=== PATIENT | male | born 1965 | race Caucasian/White ===

== ENCOUNTER → 2019-10-22 | Outpatient (CLI) | payer OTHER ==
[2019-10-22 08:12] LABS: Basophils % (A) 1 %; Eosinophils # (A) 0.1 k/uL (0-0.7); Eosinophils % (A) 2 %; HCT 47.6 % (39.0-53.0); HGB 16.4 gm/dL (13.0-17.5); Lymphocytes # (A) 1.3 k/uL (1.0-4.8); Lymphocytes % (A) 26 %; MCH 32.6 pg (25.0-35.0); MCHC 34.5 g/dL (31.0-37.0); MCV 94.5 fL (80.0-100.0); Mean Platelet Volume 7.9; Monocytes # (A) 0.3 k/uL (0-1.0); Monocytes % (A) 6 %; Neutrophils % (A) 62 %; Platelet Count 233 k/uL (150-450); RBC 5.04 m/uL (4.30-5.90); RDW 12.3 % (11.5-15.5); WBC 4.9 k/uL (3.8-10.6)
[2019-10-22 16:13] LABS: T4, Free (Free Thyroxine) 1.7 ng/dL (0.80-1.80)
== END | disposition home or self-care (01) ==
LOC: LABWHC1 07:37
PROVIDERS: ATTEND Specialist
DX: E03.9 Hypothyroidism, unspecified (principal); L65.9 Nonscarring hair loss, unspecified; R53.83 Other fatigue; K21.9 Gastro-esophageal reflux disease without esophagitis; E80.6 Other disorders of bilirubin metabolism; E16.2 Hypoglycemia, unspecified; M25.50 Pain in unspecified joint; M79.609 Pain in unspecified limb; E78.9 Disorder of lipoprotein metabolism, unspecified; D70.9 Neutropenia, unspecified; F41.9 Anxiety disorder, unspecified; R42 Dizziness and giddiness; Z79.890 Hormone replacement therapy; Z91.018 Allergy to other foods; Z12.5 Encounter for screening for malignant neoplasm of prostate
CPT/HCPCS: 84439; 84481; 84443; 85025; 84270; 82040; 84403; 82306; 80327; 36415; G0103

== ENCOUNTER → 2020-05-18 | Outpatient (CLI) | payer OTHER ==
[2020-05-18 09:34] LABS: Basophils % (A) 1 %; Eosinophils # (A) 0.1 k/uL (0-0.7); Eosinophils % (A) 2 %; HCT 48.8 % (39.0-53.0); HGB 16.3 gm/dL (13.0-17.5); Lymphocytes # (A) 1.5 k/uL (1.0-4.8); Lymphocytes % (A) 38 %; MCH 31.9 pg (25.0-35.0); MCHC 33.4 g/dL (31.0-37.0); MCV 95.4 fL (80.0-100.0); Mean Platelet Volume 7.8; Monocytes # (A) 0.2 k/uL (0-1.0); Monocytes % (A) 5 %; Neutrophils # (A) 2.1 k/uL (1.3-7.7); Neutrophils % (A) 53 %; Platelet Count 212 k/uL (150-450); RBC 5.11 m/uL (4.30-5.90); WBC 4.1 k/uL (3.8-10.6)
[2020-05-18 17:13] LABS: African American GFR (CKD) 79.5 (60.0-200.0); Albumin 4.6 g/dL (3.80-4.90); Albumin/Globulin Ratio 2.19 (1.60-3.17); Anion Gap 5.1 mmol/L (4.00-12.00); BUN/Creat Ratio 12.5 Ratio (12.00-20.00); Calcium 9.8 mg/dL (8.7-10.3); Carbon Dioxide 27.9 mmol/L (21.6-31.8); Chol/HDL Ratio 3.42; Globulin 2.1 g/dL (1.6-3.3); Non-African American GFR(CKD) 68.6 (60.0-200.0); Total Bilirubin 2.9 mg/dL (0.3-1.2); Total Protein 6.7 g/dL (6.2-8.2)
[2020-05-18 17:20] LABS: T4, Free (Free Thyroxine) 1.2 ng/dL (0.80-1.80)
[2020-05-18 17:21] LABS: Estradiol 36.4 pg/mL
[2020-05-18 17:23] LABS: Prostate Specific Antigen 0.9 ng/mL (0.0-3.5)
[2020-05-18 19:26] LABS: Thyroid Peroxidase Antibodies 73.1 U/mL (0.0-60.0)
[2020-05-18 19:29] LABS: DHEA Sulfate 188.6 ug/dL (34.5-568.9)
[2020-05-18 19:32] LABS: Insulin Level 6.2 mIU/mL (3.0-25.0)
[2020-05-18 20:26] LABS: Hemoglobin A1C 5.1 % (4.0-6.0)
[2020-05-22 22:40] LABS: Albumin, LC/MS/MS 4.4 g/dL (3.6-5.1); Testosterone, Free, LC/MS/MS 71.1 pg/mL (46.0-224.0)
== END | disposition home or self-care (01) ==
LOC: LABWHC1 08:36
PROVIDERS: ATTEND Specialist
DX: L65.9 Nonscarring hair loss, unspecified (principal); K21.9 Gastro-esophageal reflux disease without esophagitis; E80.6 Other disorders of bilirubin metabolism; E16.2 Hypoglycemia, unspecified; E03.9 Hypothyroidism, unspecified; M79.609 Pain in unspecified limb; E78.9 Disorder of lipoprotein metabolism, unspecified; R42 Dizziness and giddiness; F41.9 Anxiety disorder, unspecified; Z79.890 Hormone replacement therapy; Z79.01 Long term (current) use of anticoagulants; D70.9 Neutropenia, unspecified; R53.83 Other fatigue; E06.9 Thyroiditis, unspecified
CPT/HCPCS: 36415; 80053; 80061; 82040; 82306; 82533; 82627; 82670; 83036; 83090; 83525; 84153; 84270; 84403; 84439; 84443; 84481; 85025; 86376

== ENCOUNTER → 2020-09-13 | Outpatient (CLI) | payer OTHER ==
--- NOTE | 2020-09-13 14:05 | MR ---
EXAMINATION TYPE: MR brain and iac wo/w con DATE OF EXAM: 09/13/2020 COMPARISON: NONE HISTORY: Left ear Tinnitus TECHNIQUE: Multiplanar, multisequence images of the brain and brainstem is performed without and with IV contras t, utilizing 7.5 mL intravenous Gadavist . Acoustic nerve disorder protocol. FINDINGS: Diffusion weighted images demonstrate no evidence of a recent infarct or other diffusion ab normality. There is no extra-axial fluid collection or significant white matter signal abnormality. The ventricular system and cisternal spaces are normal in size and appearance. The brain volume is age appropriate. Midline structures demonstrate normal morphology. There is curvilinear superior scalp lesion just ri ght of midline coronal image 18 presumably benign along the superficial aspect of the bony calvarium of T1 hyperintensity not well-seen on T2-weighted images. The craniocervical junction appears within normal limits. Post contrast images demonstrate no abnormal enhancement. The dural venous sinuses ap pear patent. Mild mucosal thickening involving ethmoid sinuses bilaterally. The globes are intact chelsey aterally. No suspicious opacification of mastoid air cells bilaterally. The vestibulocochlear complexes are sym metric and felt within normal limits. No suspicious enhancing masses are identified bilaterally. IMPRESSION: Source of left-sided tinnitus is not identified. Fairly unremarkable study.
== END | disposition home or self-care (01) ==
LOC: RADMRIMAIN 12:41
PROVIDERS: ATTEND Otolaryngology Otolaryngology/Facial Plastic Surgery
DX: H93.12 Tinnitus, left ear (principal)
CPT/HCPCS: 70553; A9585

== ENCOUNTER 2022-03-29 03:25 | Emergency (ER) | payer OTHER ==
[2022-03-29 03:46] VITALS: TEMP 97.9
[2022-03-29] MEDS ORDERED: HYDROmorphone 0.5 MG/0.5 ML SYRINGE IVP STA ×2 (04:10→07:25)
[2022-03-29] MEDS ORDERED: ONDANSETRON 4 MG/2 ML VIAL IVP STA (04:11)
[2022-03-29 05:04] LABS: Basophils % (A) 0 %; Eosinophils % (A) 0 %; HCT 42.5 % (39.0-53.0); HGB 14.6 gm/dL (13.0-17.5); Lymphocytes # (A) 0.6 k/uL (1.0-4.8); Lymphocytes % (A) 6 %; MCH 32.9 pg (25.0-35.0); MCHC 34.5 g/dL (31.0-37.0); MCV 95.5 fL (80.0-100.0); Mean Platelet Volume 7.9; Monocytes # (A) 0.4 k/uL (0-1.0); Monocytes % (A) 4 %; Neutrophils # (A) 8.6 k/uL (1.3-7.7); Neutrophils % (A) 89 %; Platelet Count 246 k/uL (150-450); RBC 4.44 m/uL (4.30-5.90); RDW 13.4 % (11.5-15.5); WBC 9.7 k/uL (3.8-10.6)
[2022-03-29 05:19] LABS: ALT 29 U/L (4-49); AST 32 U/L (17-59); African American GFR (CKD) >90 (>60 ml/min/1.73 sqM); Albumin 4.3 g/dL (3.5-5.0); Alkaline Phosphatase 98 U/L (38-126); Anion Gap 6 mmol/L; Blood Urea Nitrogen 21 mg/dL (9-20); Calcium 9.5 mg/dL (8.4-10.2); Carbon Dioxide 25 mmol/L (22-30); Chloride 102 mmol/L (98-107); Glucose 165 mg/dL (74-99); Non-African American GFR(CKD) >90 (>60 ml/min/1.73 sqM); Potassium 4.5 mmol/L (3.5-5.1); Sodium 133 mmol/L (137-145); Total Bilirubin 2.5 mg/dL (0.2-1.3); Total Protein 6.6 g/dL (6.3-8.2)
[2022-03-29 05:41] LABS: Amorphous Sediment,Urine Rare /hpf; Appearance,Urine Cloudy (Clear); Bilirubin,Urine Negative (Negative); Blood,Urine Negative (Negative); Calcium Oxalate Crystals,Urine Many /hpf; Color,Urine Yellow; Glucose,Urine (UA) Negative (Negative); Hyaline Casts,Urine 30 /lpf (0-2); Ketones,Urine 3+ (Negative); Leukocyte Esterase,Urine Negative (Negative); Mucus,Urine Many /hpf; Nitrite,Urine Negative (Negative); PH, Urine 5.5 (5.0-8.0); Protein,Urine 1+ (Negative); RBC,Urine 3 /hpf (0-5); Specific Gravity,Urine 1.041 (1.001-1.035); WBC,Urine 4 /hpf (0-5)
--- NOTE | 2022-03-29 06:17 | ED ---
Trauma HPI - General Chief Complaint: Back Pain/Injury Stated Complaint: blood in urine Time Seen by Provider: 03/29/22 03:56 Source: patient Mode of arrival: wheelchair - History of Present Illness Initial Comments: This patient is a 56-year-old man who presents to have evaluation for injury to his pelvis. Patient states he had been riding a horse. States he was breaking into a new horse and it bucked up and down. He was slammed into the saddle on his buttocks and genitals. He had also pain to the pelvis. Patient denies any other injury. He did not fall from horse to the ground. No head, neck, chest, back or extremity injury or pain. Patient went home took Tylenol and attempted to rest there. He did urinate this morning and noted some blood and examination with the pain he felt he should be evaluated here. The patient states there is currently no pain when he remains still, but severe pain when he attempts to move his pelvis. No lightheadedness or palpitations. No shortness of breath. MD Complaint: injury Onset/Timin -: hour(s) Loss of Consciousness: no Location: pelvis, genitals Consistency: intermittent Context: sports related injury Associated Symptoms: denies other symptoms Treatments Prior to Arrival: other - Related Data Home Medications Medication Instructions Recorded Confirmed Multivitamin [Men's Multi-Vitamin] 1 each PO DAILY 03/31/15 01/19/16 Omeprazole [PriLOSEC] 20 mg PO AC-BRKFST PRN 03/31/15 01/19/16 Allergies Allergy/AdvReac Type Severity Reaction Status Date / Time No Known Allergies Allergy Verified 03/29/22 03:46 Review of Systems ROS Statement: Those systems with pertinent positive or pertinent negative responses have been documented in the HPI. ROS Other: All systems not noted in ROS Statement are negative. Constitutional: Denies: fever, chills Respiratory: Denies: cough, dyspnea, hemoptysis Cardiovascular: Denies: chest pain, palpitations, edema Gastrointestinal: Reports: as per HPI, abdominal pain. Denies: nausea, vomiting, diarrhea, constipation, melena, hematochezia Genitourinary: Reports: hematuria, testicular pain. Denies: urgency, dysuria, frequency, testicular mass Musculoskeletal: Denies: back pain Skin: Denies: rash Neurological: Denies: headache, weakness, numbness, paresthesias Hematological/Lymphatic: Denies: easy bleeding Past Medical History Past Medical History: GERD/Reflux Additional Past Medical History / Comment(s): pt states "tested but low for Von willebrand" History of Any Multi-Drug Resistant Organisms: None Reported Additional Past Surgical History / Comment(s): EGD Past Anesthesia/Blood Transfusion Reactions: No Reported Reaction Past Psychological History: No Psychological Hx Reported Smoking Status: Never smoker Past Alcohol Use History: Occasional Past Drug Use History: None Reported - Past Family History Mother Family Medical History: No Reported History General Exam General appearance: alert, in no apparent distress Head exam: Present: atraumatic, normocephalic Eye exam: Present: normal appearance. Absent: scleral icterus, conjunctival injection Neck exam: Present: normal inspection, full ROM. Absent: tenderness Respiratory exam: Present: normal lung sounds bilaterally. Absent: respiratory distress, wheezes, rales, rhonchi, stridor Cardiovascular Exam: Present: regular rate, normal rhythm, normal heart sounds. Absent: systolic murmur, diastolic murmur, rubs, gallop GI/Abdominal exam: Present: soft, tenderness (Low abdominal tenderness). Absent: distended, guarding, rebound, rigid, mass Extremities exam: Present: normal inspection, normal capillary refill. Absent: pedal edema, calf tenderness Back exam: Present: normal inspection. Absent: CVA tenderness (R), CVA tenderness (L) Neurological exam: Present: alert Skin exam: Present: warm, dry, intact, normal color. Absent: rash Course Vital Signs 03/29/22 03/29/22 03/29/22 03:40 05:06 06:33 Temperature 97.9 F Pulse Rate 82 67 66 Respiratory 18 20 18 Rate Blood Pressure 109/72 97/70 115/81 O2 Sat by Pulse 97 99 100 Oximetry Medical Decision Making - Medical Decision Making Patient's 56-year-old man who sustained injury when the horse he was on bucked and he slammed into the saddle. From the computed tomography scan the patient has a separation of the pubic symphysis. There is pelvic hematoma. The case is upgraded. Discussed with patient and family that given this injury higher-level of trauma care as desired, and expressed interest in being transferred to [facility], requesting [facility] but [facility] does not support this level trauma and [facility] will accept the patient. will accept patient for transfer to the emergency department. - Lab Data Result diagrams: 03/29/22 04:43 03/29/22 04:43 Lab Results 03/29/22 03/29/22 03/29/22 Range/Units 04:43 04:43 05:16 WBC 9.7 (3.8-10.6) k/uL RBC 4.44 (4.30-5.90) m/uL Hgb 14.6 (13.0-17.5) gm/dL Hct 42.5 (39.0-53.0) % MCV 95.5 (80.0-100.0) fL MCH 32.9 (25.0-35.0) pg MCHC 34.5 (31.0-37.0) g/dL RDW 13.4 (11.5-15.5) % Plt Count 246 (150-450) k/uL MPV 7.9 Neutrophils % 89 % Lymphocytes % 6 % Monocytes % 4 % Eosinophils % 0 % Basophils % 0 % Neutrophils # 8.6 H (1.3-7.7) k/uL Lymphocytes # 0.6 L (1.0-4.8) k/uL Monocytes # 0.4 (0-1.0) k/uL Eosinophils # 0.0 (0-0.7) k/uL Basophils # 0.0 (0-0.2) k/uL Sodium 133 L (137-145) mmol/L Potassium 4.5 (3.5-5.1) mmol/L Chloride 102 (98-107) mmol/L Carbon Dioxide 25 (22-30) mmol/L Anion Gap 6 mmol/L BUN 21 H (9-20) mg/dL Creatinine 0.89 (0.66-1.25) mg/dL Est GFR (CKD-EPI)AfAm >90 (>60 ml/min/1.73 sqM) Est GFR (CKD-EPI)NonAf >90 (>60 ml/min/1.73 sqM) Glucose 165 H (74-99) mg/dL Calcium 9.5 (8.4-10.2) mg/dL Total Bilirubin 2.5 H (0.2-1.3) mg/dL AST 32 (17-59) U/L ALT 29 (4-49) U/L Alkaline Phosphatase 98 (38-126) U/L Total Protein 6.6 (6.3-8.2) g/dL Albumin 4.3 (3.5-5.0) g/dL Urine Color Yellow Urine Appearance Cloudy (Clear) Urine pH 5.5 (5.0-8.0) Ur Specific [place] 1.041 H (1.001-1.035) Urine Protein 1+ H (Negative) Urine Glucose (UA) Negative (Negative) Urine Ketones 3+ H (Negative) Urine Blood Negative (Negative) Urine Nitrite Negative (Negative) Urine Bilirubin Negative (Negative) Urine Urobilinogen 2.0 (<2.0) mg/dL Ur Leukocyte Esterase Negative (Negative) Urine RBC 3 (0-5) /hpf Urine WBC 4 (0-5) /hpf Calcium Oxalate Crystal Many H (None) /hpf Amorphous Sediment Rare H (None) /hpf Hyaline Casts 30 H (0-2) /lpf Urine Mucus Many H (None) /hpf - EKG Data -: EKG Interpreted by [facility] EKG shows normal: sinus rhythm, axis (Indeterminate axis), intervals (Normal), QRS complexes (Left anterior fascicular block.), ST-T waves (Normal) Rate: normal (Rate 67 bpm) Critical Care Time Critical Care Time: Yes (40 minutes) Disposition Clinical Impression: Traumatic separation of pubic symphysis, Hematoma of pelvis Disposition: OTHER INSTITUTION NOT DEFINED Condition: Serious Is patient prescribed a controlled substance at d/c from ED?: No Referrals: Nonstaff,Physician [Primary Care Provider] - 1-2 days - Out of Hospital Transfer - Req. Specs Out of Hospital Transfer - Requested Specifics: Other Emergency Center
--- NOTE | 2022-03-29 06:25 | CT ---
EXAMINATION TYPE: CT abdomen pelvis w con DATE OF EXAM: 03/29/2022 COMPARISON: None HISTORY: Pt. was riding a horse when it bucked and he came down hard on the saddle. pain and hematur ia since CT DLP: 980 mGycm Automated exposure control for dose reduction was used. CONTRAST: Performed with IV Contrast, patient injected with 100ml mL of Isovue 370. Images obtained from the diaphragm to the floor the pelvis with IV contrast. There is minimal subsegmental atelectasis at the lung bases. No pleural effusion. No evidence of pneu mothorax. Heart size is normal. There is 1 cm cyst in the superior right lobe of the liver. Spleen is intact. No evidence of pancreatic mass. The stomach is intact. The bile ducts are not dilated. There is small hiatal hernia. There is small calcified gallstone. There is no adrenal mass. Kidneys show satisfactory contrast opacification. There is no hydronephrosi s. Ureters are not dilated. Appendix is posterior and appears normal. Delayed images show normal renal excretion. There is extensive fat stranding and increased density in the pelvis consistent with pelvic extraperi toneal hemorrhage. This extends to the pubic symphysis. There is slight widening of the pubic symphys is. The sacroiliac joints appear intact. Sacrum is intact. Sacral segments have normal alignment. Rosalva cyx appears intact. The proximal femurs and hip joints are intact. No evidence of hip fracture. The l umbar vertebrae have normal alignment. No lumbar compression fracture. Posterior elements are intact. Contours of the urinary bladder are difficult to identify. Urinary bladder appears to be almost empty and there is a rounded high attenuation mass anterior to the urinary bladder measuring 7 cm and cons istent with hematoma. There is hematoma anterior to the pubic symphysis measuring 8.5 x 2.5 cm. There is probably also hemorrhage extending into the scrotum. There is presacral fat stranding. There is no evidence of a bowel obstruction. No free air. No ascites. There are some sigmoid divertic tamika without sign of diverticulitis. IMPRESSION: There is some mild separation of the pubic symphysis consistent with ligamentous tear and extensive e xtraperitoneal hemorrhage in the pelvis around the pubic symphysis and at the floor of the pelvis and anterior to the urinary bladder. There is probably also small scrotal hematoma. No definite evidence of intraperitoneal hemorrhage.
[2022-03-29 06:35] VITALS: BP 115/81; PULSE 66; RESP 18
[2022-03-29] MEDS ORDERED: SODIUM CHLORIDE 0.9% 1,000 ML IV STA (07:00)
== END 2022-03-29 07:37 | disposition other institution (70) ==
LOC: EC 03:25
DX: S33.4XXA Traumatic rupture of symphysis pubis, initial encounter (principal); S30.0XXA Contusion of lower back and pelvis, initial encounter; K21.9 Gastro-esophageal reflux disease without esophagitis; X58.XXXA Exposure to other specified factors, initial encounter
CPT/HCPCS: 36415; 93005; 80053; 85025; 81001; 74177; 99285; 96374; 96376; J1170; Q9967